=== PATIENT | female | born 2000 | race Two or more races ===

== ENCOUNTER 2019-02-21 23:34 | Emergency (ER) | payer SELFPAY ==
[2019-02-22] MEDS ORDERED: LIDOCAINE 1% INJ-PF (10 MG/ML) 30 ML SDV INJ ONE (00:50)
--- NOTE | 2019-02-22 00:52 | ER Document Report ---
ED Medical Screen (RME) - General Chief Complaint: Finger Injury Stated Complaint: LEFT RING FINGERNAIL INGROWN Time Seen by Provider: 02/22/19 00:47 Notes: 18-year-old female with chief complaint of developing pain and swelling to the left ring finger over the past couple of days. When asked she does admit that she chews her nails and along the side of her finger. She denies injury otherwise. She denies any other complaints including fever/chills. She denies , no past medical history reported. Physical Exam - Vital signs Vitals: Temp Pulse Resp BP Pulse Ox 97.8 F 89 20 131/69 H 100 02/22/19 00:05 02/22/19 00:05 02/22/19 00:05 02/22/19 00:05 02/22/19 00:05 - Extremities General upper extremity: Other - Paronychia over the lateral aspect of the left fourth digit noted, no overt felon is noted, hand examination normal otherwise Course - Re-evaluation Re-evalutation: I have greeted and performed a rapid initial assessment of this patient. A comprehensive ED assessment and evaluation of the patient, analysis of test r esults and completion of the medical decision making process will be conducted by additional ED providers. - Vital Signs Vital signs: Temp Pulse Resp BP Pulse Ox 97.8 F 89 20 131/69 H 100 02/22/19 00:05 02/22/19 00:05 02/22/19 00:05 02/22/19 00:05 02/22/19 00:05
--- NOTE | 2019-02-22 01:25 | ER Document Report ---
ED Hand/Wrist Injury <JASPREET MUÑOZ - Last Filed: 02/22/19 03:14> - General Mode of Arrival: Ambulatory Information source: Patient TRAVEL OUTSIDE OF THE [place] IN LAST 30 DAYS: No - HPI Injury to: Ring finger Onset: Yesterday Where: Home Timing: Constant Quality of pain: Achy Severity: Mild Pain Level: 1 <IMTIAZ SHAH - Last Filed: 02/22/19 03:59> - General Chief Complaint: Finger Injury Stated Complaint: LEFT RING FINGERNAIL INGROWN Time Seen by Provider: 02/22/19 01:25 Notes: HISTORY OF PRESENT ILLNESS: Patient is a 18-year-old female with no significant past medical history who presents with pain and swelling to her left ring finger that began 1 day ago. Patient denies injury. Mechanism of injury: None Location: Left ring finger Onset: One day ago Provocation: Unknown Quality: Aching, throbbing Radiation: None Severity: Moderate at worst, currently mild Timing: Persistent Numbness/Tingling: None Dominant hand: Right REVIEW OF SYSTEMS: CONSTITUTIONAL : Denies fever or chills, no sweats. Denies recent illness. EENT: Denies eye, ear, throat, or mouth pain or symptoms. Denies nasal or sinus congestion. CARDIOVASCULAR: Denies chest pain. RESPIRATORY: Denies cough, cold, or chest congestion. Denies shortness of breath, difficulty breathing, or wheezing. GASTROINTESTINAL: Denies abdominal pain. Denies nausea, vomiting, or diarrhea. Denies constipation. GENITOURINARY: Denies difficulty urinating, painful urination, burning, frequency, or blood in urine. FEMALE GENITOURINARY: Denies vaginal bleeding, abnormal or irregular periods. Last menstrual period MUSCULOSKELETAL: Positive for pain and swelling to the left ring finger. SKIN: Denies rash or skin lesions. HEMATOLOGIC : Denies easy bruising or bleeding. LYMPHATIC: Denies swollen, enlarged glands. NEUROLOGICAL: Denies weakness or paralysis or loss of use of either side. Denies problems with gait or speech. Denies sensory or motor loss. PSYCHIATRIC: Denies anxiety or stress or depression. All other systems reviewed and negative. PHYSICAL EXAMINATION: GENERAL: Well-appearing, well-nourished and in no acute distress. HEAD: Atraumatic, normocephalic. No scalp deformity, depression, or crepitance. EYES: Pupils are 3 mm and equal/round/reactive to light, extraocular movements intact, sclera anicteric, conjunctiva are normal. ENT: Nares patent bilaterally, oropharynx clear without exudates or palatal petechia. Moist mucous membranes. No tonsil hypertrophy. NECK: Normal range of motion, supple without lymphadenopathy. LUNGS: Breath sounds present, equal, and clear to auscultation bilaterally. No wheezes, rales, or rhonchi. HEART: Regular rate and rhythm without murmurs, rubs, or gallops. 2+ peripheral pulses. Normal capillary refill. ABDOMEN: Soft, nontender, nondistended. Normoactive bowel sounds. No guarding, no rebound. No masses appreciated. BACK: Normal contour, no midline tenderness. Rectal exam deferred. GENITAL/PELVC: Deferred. EXTREMITIES: Mild swelling to the left fourth distal phalanx, no visible erythema, no drainage. Normal range of motion, no obvious deformity. No pitting or edema. No cyanosis and normal capillary refill <2 seconds. NEUROLOGICAL: No focal neurological deficits. Moves all extremities spontaneously and on command. PSYCH: Normal mood, normal affect. No suicidal thoughts/ideations. No homicidal thoughts/ideations. No hallucinations. SKIN: Warm, dry, normal turgor, no rashes or lesions noted. ASSESSMENT AND PLAN: This patient is a 18-year-old female who presents with pain and swelling to the left ring finger that could represent paronychia versus felon, favor paronychia given presentation. 1. Will perform incision and drainage. 2. Will give oral clindamycin with [place]. (IMTIAZ SHAH) - Related Data Allergies/Adverse Reactions: No Known Allergies Allergy (Verified 02/22/19 00:52) Past Medical History - General Information source: Patient - Social History Smoking Status: Never Smoker Chew tobacco use (# tins/day): No Frequency of alcohol use: None Drug Abuse: None Lives with: Alone Family History: Reviewed & Not Pertinent Patient has suicidal ideation: No Patient has homicidal ideation: No - Medical History Medical History: Negative - Past Medical History Cardiac Medical History: Reports: None Pulmonary Medical History: Reports: None EENT Medical History: Reports: None Neurological Medical History: Reports: None Endocrine Medical History: Reports: None Renal/ Medical History: Reports: None Malignancy Medical History: Reports: None GI Medical History: Reports: None Musculoskeletal Medical History: Reports None Skin Medical History: Reports None Psychiatric Medical History: Reports: None Traumatic Medical History: Reports: None Infectious Medical History: Reports: None Surgical Hx: Negative Past Surgical History: Reports: None - Immunizations Immunizations up to date: Yes Hx Diphtheria, Pertussis, Tetanus Vaccination: Yes <IMTIAZ SHAH - Last Filed: 02/22/19 03:59> Review of Systems - Review of Systems Constitutional: No symptoms reported EENT: No symptoms reported Cardiovascular: No symptoms reported Respiratory: No symptoms reported Gastrointestinal: No symptoms reported Genitourinary: No symptoms reported Female Genitourinary: No symptoms reported Musculoskeletal: See HPI, Joint pain, Joint swelling Skin: No symptoms reported Hematologic/Lymphatic: No symptoms reported Neurological/Psychological: No symptoms reported -: Yes All other systems reviewed and negative <IMTIAZ SHAH - Last Filed: 02/22/19 03:59> Physical Exam - Vital signs Interpretation: Normal <IMTIAZ SHAH - Last Filed: 02/22/19 03:59> - Vital signs Vitals: Temp Pulse Resp BP Pulse Ox 97.8 F 89 20 131/69 H 100 02/22/19 00:05 02/22/19 00:05 02/22/19 00:05 02/22/19 00:05 02/22/19 00:05 Course <IMTIAZ SHAH - Last Filed: 02/22/19 03:59> - Re-evaluation Re-evalutation: 02/22/19 03:56 Please see procedure note for details. Will discharge the patient home with strict return precautions and follow-up with primary care. All results were exp lained to and discussed with the patient, and all questions addressed and answered. The patient voices both understanding and agreeing with the plan. (IMTIAZ SHAH) - Vital Signs Vital signs: Temp Pulse Resp BP Pulse Ox 97.8 F 82 20 108/61 97 02/22/19 03:16 02/22/19 03:16 02/22/19 00:05 02/22/19 03:16 02/22/19 03:16 Procedures - Incision and Drainage left fourth digit Type: Single Anesthetic type: 1% Lidocaine, 0.5% Bupivacaine mL's of anesthetic: 5 Blade size: 11 I&D procedure: Shurclens applied, Sterile dressing applied Incision Method: Incision made by scalpel Amount/type of drainage: about 1 cc of pus <JASPREET MUÑOZ - Last Filed: 02/22/19 03:14> - Incision and Drainage left fourth digit Notes: Paronychia on the left fourth digit drained after cleaning thoroughly with Shur-Clens, anesthesia was provided with digital block using a total of 5 mL's of 0.5% bupivacaine and 1% lidocaine with good results. Patient tolerated procedure well. About 1 cc of purulent material was drained after small incision with the scalpel, small amount of bleeding afterwards which stopped with pressure. No complications. (JASPREET MUÑOZ) Discharge <JASPREET MUÑOZ - Last Filed: 02/22/19 03:14> <IMTIAZ SHAH - Last Filed: 02/22/19 03:59> - Discharge Clinical Impression: Paronychia Condition: Good Disposition: HOME, SELF-CARE Instructions: Paronychia ([facility]) Additional Instructions: You have been evaluated in the Emergency Department for pain and swelling to your left ring finger. While here, you had the area drained and it is now safe to be discharged home. Please follow-up with your primary physician as instructed in one week to be rechecked. Return to the Emergency Department if you experience high fevers, worsening pain/swelling of your finger, numbness/tingling of your fingers or hand, or any other concerning symptoms. Prescriptions: Clindamycin HCl [Cleocin 150 mg Capsule] 450 mg PO TID 10 Days #30 capsule Print Language: Czech
[2019-02-22] MEDS ORDERED: CLINDAMYCIN HCL 150 MG CAPSULE PO ONE (02:00)
[2019-02-22] MEDS ORDERED: HYDROCODONE/ACETAMINOPHEN 5-325 MG TABLET PO ONE (02:00)
[2019-02-22] MEDS ORDERED: BUPIVACAINE HCL 0.5 % INJ/PF 30 ML SDV INJ ONE (02:14)
[2019-02-22 03:22] VITALS: BP 108/61
== END 2019-02-22 04:00 | disposition home or self-care (01) ==
LOC: ER 23:34
DX: L03.012 Cellulitis of left finger (principal)
CPT/HCPCS: 99283; 96374; 96375; 10060; J3490 ×2